=== PATIENT | female | born 1995 | race Two or more races ===

== ENCOUNTER 2018-08-24 06:04 | Inpatient (IN) | payer OTHER ==
[~2018-08-24] VITALS: Ht 154.9 cm; Wt 82.3 kg
[2018-08-24 06:43] LABS: BILIRUBIN,URINE NEGATIVE (NEG); CLARITY,URINE CLEAR; COLOR,URINE YELLOW; NITRITE,URINE NEGATIVE (NEG); PROTEIN,URINE NEGATIVE (NEG-TRACE)
[2018-08-24 06:48] LABS: AMPHETAMINE/METHAMPHETAMINE NEG (NEG); BARBITURATES NEG (NEG); BENZODIAZEPINES NEG (NEG); CANNABINOIDS NEG (NEG); COCAINE NEG (NEG); METHADONE NEG (NEG); OPIATES NEG (NEG); PHENCYCLIDINE NEG (NEG)
[2018-08-24 06:54] LABS: SQUAMOUS EPITHELIAL CELL,UR MOD /LPF
[2018-08-24 06:55] LABS: BACTERIA,URINE 0 /HPF (0-FEW)
[2018-08-24 07:31] LABS: AMNIO PT POSITIVE
[2018-08-24] MEDS ORDERED: CITRIC ACID/SODIUM CITRATE 30 ML SOLUTION. PO PRN (07:45)
[2018-08-24] MEDS ORDERED: ONDANSETRON PF 4 MG/2 ML VIAL. IV PRN (07:45)
[2018-08-24] MEDS ORDERED: IV RINGERS,LACTATED 1000ML 1,000 ML IV PRN (07:45)
[2018-08-24] MEDS ORDERED: ACETAMINOPHEN 325 MG TABLET. PO PRN ×2 (07:45→12:15)
[2018-08-24] MEDS ORDERED: OXYTOCIN 30 UNIT/500 ML PREMIX 500 ML IV PRN ×3 (07:45→12:15)
[2018-08-24] MEDS ORDERED: 0.9 % SODIUM CHLORIDE 10 ML DISP.SYRIN. IV PRN ×2 (07:45→12:15)
[2018-08-24] MEDS ORDERED: IBUPROFEN 400 MG TABLET. PO PRN ×2 (07:45→12:15)
[2018-08-24] MEDS ORDERED: fentaNYL PF VIAL 100 MCG/2 ML VIAL IV PRN ×2 (07:45)
[2018-08-24] MEDS ORDERED: LIDOCAINE 1% PF 30 ML VIAL. INJ PRN (07:45)
[2018-08-24] MEDS: IV RINGERS,LACTATED 1000ML 1,000 ML IV SCH ×2 (08:18→10:24)
[2018-08-24 08:32] LABS: BASO % 0 % (0-3); EOS % 0 % (0-3); HEMATOCRIT 38.4 % (36.0-47.0); HEMOGLOBIN 12.6 g/dL (12.0-15.5); LYMPH # 2.1 x10^3/uL (1.0-4.8); LYMPH % 22 % (24-48); MEAN CORPUSCULAR HEMOGLOBIN 30 pg (25-35); MEAN CORPUSCULAR HGB CONC 33 g/dL (31-37); MEAN CORPUSCULAR VOLUME 91 fL (79-100); MONO # 0.6 x10^3/uL (0.0-1.1); MONO % 6 % (0-9); NEUT # 6.7 x10^3uL (1.8-7.7); NEUT % 71 % (31-73); PLATELET COUNT 169 x10^3/uL (140-400); RED BLOOD COUNT 4.25 x10^6/uL (3.50-5.40); RED CELL DISTRIBUTION WIDTH 14.4 % (11.5-14.5); WHITE BLOOD COUNT 9.5 x10^3/uL (4.0-11.0)
[2018-08-24 08:49] LABS: ALBUMIN 2.7 g/dL (3.4-5.0); ALBUMIN/GLOBULIN RATIO 0.8 (1.0-1.7); CALCIUM 8.9 mg/dL (8.5-10.1); CREATININE 0.3 mg/dL (0.6-1.0); GFR 278.2; POTASSIUM 4.1 mmol/L (3.5-5.1); TOTAL BILIRUBIN 0.6 mg/dL (0.2-1.0); TOTAL PROTEIN 6.2 g/dL (6.4-8.2)
[2018-08-24 09:15] VITALS: BP 108/58
--- NOTE | 2018-08-24 12:06 | PDOC1 ---
OB - History Hx of Present Care: Good Care Ultrasounds: Normal mid trimester US Obstetrical Complications: None Medical Complications: None Past Family/Social History * Past Medical, Surgical, Family and Obstetric Histories reviewed from chart. Rubella: Immune RPR/VDRL: Negative GBS Status: Negative HBsAG: Negative OB - Chief Complaint & HPI Date of Admission: Date of Admission: Aug 24, 2018 at 06:04 Chief Complaint/History : 3 Para: 2 EGA: 38 Reason for admission: active labor Admission Nurse Assessment Rev: Yes OB - Admission Exam Physical Exam Vitals: VS - Last 72 Hours, by Label Date Time Temp Pulse Resp B/P (MAP) Pulse Ox O2 Delivery O2 Flow Rate FiO2 08/24/18 09:15 98.6 97 16 108/58 (75) Room Air 98.6 HEENT: Normal Heart: Regular Rate Lungs: Clear Abdomen: Gravid, Non tender, Soft Extremities: Edema Reflexes: Normal Cervical Dilatation: 3cm Effacement: 75% Station: -2 Membranes: Ruptured Amniotic Fluid: Clear Accelerations: Accelerations Present Decelerations: No decelerations Contractions on Admission: 6-10 Minutes Apart Intensity: Mild Text A: 38 wks IUP SROM Active labor P: Admit for labor management. Pitocin augmentation. GINGER BANKS Jr, MD Aug 24, 2018 12:06
--- NOTE | 2018-08-24 12:08 | PDOC ---
VAGINAL DELIVERY DATE DATE: 08/24/18 TIME: 12:07 : 3 Para: 3 EGA: 38 VAGINAL DELIVERY: VTX VACCUM ASSISTED: No PLACENTA: Spontaneous 8/9 SEX: Female WEIGHT Weight [ ] Nuchal Cord: No Amniotic Fluid: Clear PAIN: Natural EPISIOTOMY: No EXTENSION: Yes (1st degree midline laceration; hemostatic) REPAIRED WITH none EBL 300 ml COMPLICATIONS suspect 20% abruption on visual exam of placenta CONDITION pt. stable Signs of Intrauterine Infectio: None Shoulder Dystocia: No GNIGER BANKS Jr, MD Aug 24, 2018 12:08
[2018-08-24] MEDS ORDERED: MAG HYDROX/ALUMINUM HYD/SIMETH 30 ML ORAL.SUSP PO PRN (12:15)
[2018-08-24] MEDS ORDERED: oxyCODONE/APAP 5/325 1 TAB TABLET PO PRN (12:15)
[2018-08-24] MEDS ORDERED: ZOLPIDEM 5 MG TABLET. PO PRN (12:15)
[2018-08-24] MEDS ORDERED: HYDROCORTISONE 1% TOPICAL OINTMENT 30GM TUBE. TP PRN (12:15)
[2018-08-24] MEDS ORDERED: MMR per PROTOCOL. MC PRN (12:15)
[2018-08-24] MEDS ORDERED: MAGNESIUM HYDROXIDE 2,400 MG/30 ML ORAL.SUSP. PO PRN (12:15)
[2018-08-24] MEDS ORDERED: PHENYLEPH/MINERAL OIL/PETROLAT RECTAL OINTMENT 28GM TUBE. RC PRN (12:15)
[2018-08-24] MEDS ORDERED: BENZOCAINE 20% TOPICAL AEROSOL SPRAY 57GM CAN. TP PRN (12:15)
[2018-08-24] MEDS ORDERED: DOCUSATE SODIUM 100 MG CAPSULE. PO PRN (12:15)
[2018-08-24] MEDS ORDERED: diphenhydrAMINE HCL 25 MG CAPSULE PO PRN (12:15)
[2018-08-24] MEDS ORDERED: SIMETHICONE 80 MG TAB.CHEW PO PRN (12:15)
[2018-08-24 16:20] VITALS: BP 101/52
[2018-08-24 18:12] VITALS: BP 99/51
[2018-08-24 21:30] VITALS: BP 122/75
[2018-08-25 02:30] VITALS: BP 118/80
[2018-08-25 06:42] VITALS: BP 121/80
[2018-08-25 07:39] LABS: BASO # 0.1 x10^3/uL (0.0-0.2); BASO % 1 % (0-3); EOS # 0.1 x10^3/uL (0.0-0.7); EOS % 1 % (0-3); HEMATOCRIT 35.1 % (36.0-47.0); HEMOGLOBIN 11.6 g/dL (12.0-15.5); LYMPH # 2.5 x10^3/uL (1.0-4.8); LYMPH % 24 % (24-48); MEAN CORPUSCULAR HEMOGLOBIN 30 pg (25-35); MEAN CORPUSCULAR HGB CONC 33 g/dL (31-37); MEAN CORPUSCULAR VOLUME 91 fL (79-100); MONO # 0.6 x10^3/uL (0.0-1.1); MONO % 6 % (0-9); NEUT # 7.1 x10^3uL (1.8-7.7); NEUT % 69 % (31-73); PLATELET COUNT 147 x10^3/uL (140-400); RED BLOOD COUNT 3.84 x10^6/uL (3.50-5.40); RED CELL DISTRIBUTION WIDTH 14.4 % (11.5-14.5); WHITE BLOOD COUNT 10.3 x10^3/uL (4.0-11.0)
[2018-08-25] MEDS ORDERED: FERROUS SULFATE 325 MG TABLET. PO SCH (08:00)
--- NOTE | 2018-08-25 10:18 | PDOC ---
OB Progress Note Date of Service 08/25/18 Time of Evaluation 1015 Notes PT. feeling well. Pain controlled. Breast feeding without difficulty. Lab Laboratory Tests Test 08/24/18 06:30 08/24/18 07:10 08/24/18 08:09 08/25/18 07:02 Urine Collection Type Unknown Urine Color Yellow Urine Clarity Clear Urine pH 7.0 Urine Specific [place] 1.010 Urine Protein Negative mg/dL (NEG-TRACE) Urine Glucose (UA) Negative mg/dL (NEG) Urine Ketones (Stick) Negative mg/dL (NEG) Urine Blood Negative (NEG) Urine Nitrite Negative (NEG) Urine Bilirubin Negative (NEG) Urine Urobilinogen Dipstick 1.0 mg/dL (0.2 mg/dL) Urine Leukocyte Esterase Trace (NEG) Urine RBC 1-2 /HPF (0-2) Urine WBC 5-10 /HPF (0-4) Urine Squamous Epithelial Cells Mod /LPF Urine Bacteria 0 /HPF (0-FEW) Urine Mucus Slight /LPF Urine Opiates Screen Neg (NEG) Urine Methadone Screen Neg (NEG) Urine Barbiturates Neg (NEG) Urine Phencyclidine Screen Neg (NEG) Urine Amphetamine/Methamphetamine Neg (NEG) Urine Benzodiazepines Screen Neg (NEG) Urine Cocaine Screen Neg (NEG) Urine Cannabinoids Screen Neg (NEG) Urine Ethyl Alcohol Neg (NEG) Amniotic Fluid Swab Test Positive White Blood Count 9.5 x10^3/uL (4.0-11.0) 10.3 x10^3/uL (4.0-11.0) Red Blood Count 4.25 x10^6/uL (3.50-5.40) 3.84 x10^6/uL (3.50-5.40) Hemoglobin 12.6 g/dL (12.0-15.5) 11.6 g/dL (12.0-15.5) Hematocrit 38.4 % (36.0-47.0) 35.1 % (36.0-47.0) Mean Corpuscular Volume 91 fL (79-100) 91 fL (79-100) Mean Corpuscular Hemoglobin 30 pg (25-35) 30 pg (25-35) Mean Corpuscular Hemoglobin Concent 33 g/dL (31-37) 33 g/dL (31-37) Red Cell Distribution Width 14.4 % (11.5-14.5) 14.4 % (11.5-14.5) Platelet Count 169 x10^3/uL (140-400) 147 x10^3/uL (140-400) Neutrophils (%) (Auto) 71 % (31-73) 69 % (31-73) Lymphocytes (%) (Auto) 22 % (24-48) 24 % (24-48) Monocytes (%) (Auto) 6 % (0-9) 6 % (0-9) Eosinophils (%) (Auto) 0 % (0-3) 1 % (0-3) Basophils (%) (Auto) 0 % (0-3) 1 % (0-3) Neutrophils # (Auto) 6.7 x10^3uL (1.8-7.7) 7.1 x10^3uL (1.8-7.7) Lymphocytes # (Auto) 2.1 x10^3/uL (1.0-4.8) 2.5 x10^3/uL (1.0-4.8) Monocytes # (Auto) 0.6 x10^3/uL (0.0-1.1) 0.6 x10^3/uL (0.0-1.1) Eosinophils # (Auto) 0.0 x10^3/uL (0.0-0.7) 0.1 x10^3/uL (0.0-0.7) Basophils # (Auto) 0.0 x10^3/uL (0.0-0.2) 0.1 x10^3/uL (0.0-0.2) Sodium Level 138 mmol/L (136-145) Potassium Level 4.1 mmol/L (3.5-5.1) Chloride Level 103 mmol/L (98-107) Carbon Dioxide Level 23 mmol/L (21-32) Anion Gap 12 (6-14) Blood Urea Nitrogen 6 mg/dL (7-20) Creatinine 0.3 mg/dL (0.6-1.0) Estimated GFR (Cockcroft-Gault) 278.2 BUN/Creatinine Ratio 20 (6-20) Glucose Level 80 mg/dL (70-99) Calcium Level 8.9 mg/dL (8.5-10.1) Total Bilirubin 0.6 mg/dL (0.2-1.0) Aspartate Amino Transf (AST/SGOT) 28 U/L (15-37) Alanine Aminotransferase (ALT/SGPT) 18 U/L (14-59) Alkaline Phosphatase 127 U/L (46-116) Total Protein 6.2 g/dL (6.4-8.2) Albumin 2.7 g/dL (3.4-5.0) Albumin/Globulin Ratio 0.8 (1.0-1.7) Treponema pallidum Antibody Nonreactive (Nonreactive) Laboratory Tests Test 08/25/18 07:02 White Blood Count 10.3 x10^3/uL (4.0-11.0) Red Blood Count 3.84 x10^6/uL (3.50-5.40) Hemoglobin 11.6 g/dL (12.0-15.5) Hematocrit 35.1 % (36.0-47.0) Mean Corpuscular Volume 91 fL (79-100) Mean Corpuscular Hemoglobin 30 pg (25-35) Mean Corpuscular Hemoglobin Concent 33 g/dL (31-37) Red Cell Distribution Width 14.4 % (11.5-14.5) Platelet Count 147 x10^3/uL (140-400) Neutrophils (%) (Auto) 69 % (31-73) Lymphocytes (%) (Auto) 24 % (24-48) Monocytes (%) (Auto) 6 % (0-9) Eosinophils (%) (Auto) 1 % (0-3) Basophils (%) (Auto) 1 % (0-3) Neutrophils # (Auto) 7.1 x10^3uL (1.8-7.7) Lymphocytes # (Auto) 2.5 x10^3/uL (1.0-4.8) Monocytes # (Auto) 0.6 x10^3/uL (0.0-1.1) Eosinophils # (Auto) 0.1 x10^3/uL (0.0-0.7) Basophils # (Auto) 0.1 x10^3/uL (0.0-0.2) Medications Current Medications Ringer's Solution 1,000 ml @ 125 mls/hr Q8H IV Last administered on 08/24/18at 10:24; Start 08/24/18 at 07:00; Stop 08/25/18 at 07:19; Status DC Sodium Chloride (Normal Saline Flush) 3 ml QSHIFT PRN IV AFTER MEDS AND BLOOD DRAWS; Start 08/24/18 at 07:45; Stop 08/25/18 at 07:19; Status DC Ringer's Solution 1,000 ml @ 125 mls/hr Q8H PRN IV PER PROTOCOL; Start 08/24/18 at 07:45; Stop 08/25/18 at 07:19; Status DC Fentanyl Citrate (Fentanyl 2ml Vial) 50 mcg PRN Q30MIN PRN IV Mild to moderate pain; Start 08/24/18 at 07:45; Stop 08/25/18 at 07:19; Status DC Fentanyl Citrate (Fentanyl 2ml Vial) 100 mcg PRN Q30MIN PRN IV Severe pain; Start 08/24/18 at 07:45; Stop 08/25/18 at 07:19; Status DC Acetaminophen (Tylenol) 650 mg PRN Q6HRS PRN PO MILD PAIN / TEMP; Start at 07:45 Ondansetron HCl (Zofran) 4 mg PRN Q4HRS PRN IV NAUSEA/VOMITING; Start 08/24/18 at 07:45; Stop 08/25/18 at 07:19; Status DC Citric Acid/ Sodium Citrate (Bicitra) 30 ml 1X PRN PRN PO DYSPEPSIA; Start 08/24 at 07:45; Stop 08/25/18 at 07:19; Status DC Lidocaine HCl (Xylocaine 1% Pf 30ml Vial) 30 ml 1X PRN PRN INJ SEE COMMENTS; Start 08/24/18 at 07:45; Stop 08/25/18 at 07:19; Status DC Oxytocin/Sodium Chloride 500 ml @ 0 mls/hr CONT PRN IV SEE I/O RECORD Last administered on 08/24/18at 10:24; Start 08/24/18 at 07:45; Stop 08/25/18 at 07:19; Status DC Oxytocin/Sodium Chloride 500 ml @ 0 mls/hr CONT PRN PRN IV Post delivery bleeding; Start 08/24/18 at 07:45; Stop 08/25/18 at 07:19; Status DC Ibuprofen (Motrin) 800 mg PRN Q6HRS PRN PO PAIN Last administered on 08/24/18at 18:21; Start 08/24/18 at 07:45 Sodium Chloride (Normal Saline Flush) 10 ml QSHIFT PRN IV AFTER MEDS AND BLOOD DRAWS; Start 08/24/18 at 12:15; Stop 08/25/18 at 07:19; Status DC Oxytocin/Sodium Chloride 500 ml @ 62.5 mls/hr CONT PRN IV SEE I/O RECORD; Start 08/24/18 at 12:15; Stop 08/24/18 at 20:14; Status DC Acetaminophen (Tylenol) 650 mg PRN Q6HRS PRN PO MILD PAIN / TEMP; Start at 12:15; Stop 08/24/18 at 12:16; Status DC Ibuprofen (Motrin) 800 mg PRN Q8HRS PRN PO INFLAMMATION/PAIN PREVENTION; Start 08/24/18 at 12:15; Stop 08/24/18 at 12:16; Status DC Docusate Sodium (Colace) 100 mg PRN BID PRN PO CONSTIPATION 1ST CHOICE Last administered on 08/24/18at 18:21; Start 08/24/18 at 12:15 Magnesium Hydroxide (Milk Of Magnesia) 2,400 mg PRN DAILY PRN PO CONSTIPATION 2ND CHOICE; Start 08/24/18 at 12:15 Al Hydroxide/Mg Hydroxide (Mylanta Plus Xs) 30 ml PRN Q4HRS PRN PO HEARTBURN / GAS; Start 08/24/18 at 12:15 Simethicone (Gas-X) 80 mg PRN AFTMEALHC PRN PO GAS / BLOATING; Start 08/24/18 at 12:15 Diphenhydramine HCl (Benadryl) 25 mg PRN Q6HRS PRN PO ITCHING; Start 08/24/18 at 12:15 Benzocaine (Americaine) 1 spray PRN QID PRN TP TOPICAL PAIN; Start 08/24/18 at 12:15 Phenyleph/Shark Oil/Min Oil/Petrol (Preparation H) 1 charisse PRN QID PRN RC RECTAL PAIN; Start 08/24/18 at 12:15 Hydrocortisone (Cortaid) 1 charisse PRN QID PRN TP PERINEAL PAIN; Start 08/24/18 at 12:15 Ferrous Sulfate (Feosol) 325 mg BIDWMEALS PO ; Start 08/25/18 at 08:00 Zolpidem Tartrate (Ambien) 5 mg PRN QHS PRN PO INSOMNIA, MAY REPEAT X1; Start 08/24/18 at 12:15 Info (Do NOT chart on this placeholder) 1 ea 1X PRN PRN MC SEE COMMENTS; Start 08/24/18 at 12:15; Stop 08/25/18 at 07:19; Status DC Info (Do NOT chart on this placeholder) 1 ea 1X PRN PRN MC SEE COMMENTS; Start 08/24/18 at 12:15; Stop 08/25/18 at 07:19; Status DC Oxycodone/ Acetaminophen (Percocet 5/325) 2 tab PRN Q4HRS PRN PO MODERATE PAIN , SEVERE PAIN; Start 08/24/18 at 12:15 Exam Abd: soft, non tender, fundus firm Assessment PPD#1 s/p Plan of Care: Continue current Tx, Mgmt GINGER BANKS Jr, MD Aug 25, 2018 10:18
[2018-08-25 12:47] VITALS: BP 110/73
[2018-08-25 17:31] VITALS: BP 130/91
[2018-08-25 23:08] VITALS: BP 134/93
--- NOTE | 2018-08-26 08:11 | PDOC3 ---
OB DISCHARGE SUMMARY DATE OF ADMISSION: 08/24/18 DATE OF DISCHARGE: 08/26/18 REASON FOR ADMISSION: Onset of labor INTRAPARTUM PROCEDURES: Spontanous Vag Deliv DISCHARGE DIAGNOSIS: Term Delivered DISCHARGE INFORMATION: Activity (ad samaria), Diet (regular), Instructions (pelvic rest x 6 wks) HOSPITAL COURSE Term gestation delivered vaginally without any complications. GINGER BANKS Jr, MD Aug 26, 2018 08:11
--- NOTE | 2018-08-26 08:11 | DISCH ---
DISCHARGE INSTRUCTIONS Condition on Discharge Condition on Discharge: Stable Activity After Discharge Activity Instructions for Disc: Activity as tolerated Lifting Instructions after Dis: No heavy lifting Driving Instructions after Dis: Do not drive today Diet after Discharge Diet after Discharge: Regular Contacting the DRJimi after DC Call your doctor for: Concerns you may have Follow-Up Follow up with: [facility] in 6 wks GINGER BANKS Jr, MD Aug 26, 2018 08:11
[2018-08-26] MEDS ORDERED: IBUP-1027 PO (08:13)
--- NOTE | 2018-08-26 10:55 | NUR ---
Discharge Discharge instructions given to patient at this time, no questions or concerns noted at this time. To follow up in 6 weeks with [facility]. Patient requesting to shower. will continue to monitor until discharged from hospital.
--- NOTE | 2018-08-26 17:08 | PATHOLOGY ---
[facility] Accession Number: [id number] . 01 Material submitted: . PLACENTA . 01 Clinical history: . ; EDC 09/06/18; Apgars 9, 9; gestational age 38.1 weeks; abruptio placenta; 20% partial abruption . 02 Diagnosis: 599 gram early term placenta of an estimated 38 weeks gestation with attached membranes and umbilical cord: - Focal disruption of maternal surface (clinical history of partial abruption). - Small intervillous thrombus with focal villous entrapment and ischemic degeneration. - Few small foci of avascular villi. (JPM:[facility] 08/26/2018) QTP/08/26/2018 . 02 Electronically signed: . Roc Wells MD, Pathologist NPI- [id number] . 01 Gross description: . The specimen is received in formalin, labeled "Deidre Garcia, placenta". Received is a deleon placenta with attached membranes and umbilical cord with a trimmed placental weight of 599 g and measuring 15.4 x 14.9 x 4.2 cm in greatest dimensions. The membranes are pink-kong and translucent in appearance, and the site of membrane rupture is 8.8 cm from the closest placental margin. The surface is intact displaying a normal arborizing vasculature pattern, fibrin deposition, as well as a completely detached amnion which is wrapped around the cord insertion site. Adjacent to the cord insertion site, there is a fluid-filled subamnionic cyst measuring 1.5 cm. The trivascular umbilical cord measures 52.8 cm in length by up to 1.6 cm in diameter and inserts eccentrically, 1.8 cm from the closest placental margin. The umbilical cord is pale kong to pettit-kong in appearance with moderate helical twisting. The maternal surface is disrupted over approximately 20% of the surface area, and displays a slight amount of adherent blood coagulum. Sectioning reveals red-brown cut surfaces displaying a single possible infarct measuring 0.5 cm. The specimen is submitted representatively as follows: . A1 umbilical cord and surface vessels, to include subamnionic cystic structure adjacent to cord insertion site A2 umbilical cord and membrane roll A3-A4 full-thickness possible cross-section, to include possible infarct A5 telephone claims representative section through area of disruption. (CAA; 08/25/2018) QAC/QAC . 02 Pathologist provided ICD-10: O43.893, Z37.0, Z3A.38 . 02 CPT . 079113 Specimen Comment: A courtesy copy of this report has been sent to Specimen Comment: [phone]. Specimen Comment: Report sent to Performed at: [facility] [address], [place] [id number] MD Zach Chung MD Phone: [phone] Performed at: 02 [facility] [address], [place] [id number] MD Roc Wells MD Phone: [phone]
== END 2018-08-26 12:09 | disposition home or self-care (01) | DRG 806 ==
LOC: OBSVTOIN 06:04 → 3 SO LND 06:04 → 3 NORTH 15:38
PROVIDERS: ADMIT Obstetrics & Gynecology; ATTEND Obstetrics & Gynecology
PROC: 10E0XZZ Delivery of Products of Conception, External Approach (ICD-10-PCS; principal; 2018-08-24)
PROC: 0HQ9XZZ Repair Perineum Skin, External Approach (ICD-10-PCS; 2018-08-24)
DX: O70.0 First degree perineal laceration during delivery (principal); D62 Acute posthemorrhagic anemia; Z37.0 Single live birth; Z3A.38 38 weeks gestation of pregnancy; O99.02 Anemia complicating childbirth
CPT/HCPCS: 36415; 80053; 80307; 81001; 84112; 85025; 86592; 86850; 86900; 86901; 87086; 88307; J2590; J7120

== ENCOUNTER 2020-10-20 21:44 | Inpatient (IN) | payer OTHER ==
[~2020-10-20] VITALS: Ht 154.9 cm; Wt 78.2 kg
[~2020-10-20 21:44] MED LIST: IBUP-1027 PO
[2020-10-20] MEDS ORDERED: OXYTOCIN 30 UNIT/500 ML PREMIX 500 ML IV ONE (22:08)
[2020-10-20] MEDS ORDERED: BUTORPHANOL 2 MG/ML VIAL. IVP PRN ×2 (22:15)
[2020-10-20] MEDS ORDERED: OXYTOCIN 30 UNIT/500 ML PREMIX 500 ML IV PRN ×3 (22:15→22:30)
[2020-10-20] MEDS ORDERED: 0.9 % SODIUM CHLORIDE 10 ML DISP.SYRIN. IV PRN ×2 (22:15→22:30)
[2020-10-20] MEDS ORDERED: fentaNYL PF VIAL 100 MCG/2 ML VIAL IVP PRN (22:15)
[2020-10-20] MEDS ORDERED: ACETAMINOPHEN 325 MG TABLET. PO PRN ×2 (22:15→22:30)
[2020-10-20] MEDS ORDERED: ONDANSETRON PF 4 MG/2 ML VIAL. IVP PRN (22:15)
[2020-10-20] MEDS ORDERED: TERBUTALINE 1 MG/ML VIAL. SQ PRN (22:15)
[2020-10-20] MEDS ORDERED: LIDOCAINE 1% PF 30 ML VIAL. INJ PRN (22:15)
--- NOTE | 2020-10-20 22:24 | PDOC ---
VAGINAL DELIVERY DATE DATE: 10/20/20 TIME: 22:24 TIME Patient delivered a viable male over intact perineum at 2205. Wt 7 lb 1 oz. Apgars 8/9. Placenta delivered spontaneously, intact with 3VC. No lacerations noted. Good hemostasis noted. 20 U of Pit given with IVF. EBL 100cc. WEIGHT Weight [ ] IVETTE BERKOWITZ MD October 20, 2020 22:24
--- NOTE | 2020-10-20 22:24 | PDOC1 ---
PRODUCT LINE MANAGER H&P Date of Admission: Date of Admission: October 20, 2020 at 21:44 History of Present Illness: EDC: 11/11/20 LMP: 02/05/20 25y @ 36.6 by L=16 presents to L&D with LOF and ctxs. The pt states that she experienced LOF at 1600, but did not present to the hospital until she began to feeling ctxs. On presentation the pt was found to be 8 cm dilated. I returned the call from labor at 2104 and was informed of her cervical dilation. Shortly after the phone call the pt delivered at 210. PMH: Denies PSH: Denies Meds: PNV, Fe All: NKDA OBHx: TSVD x 3 SH: no tob, no EtOH FH: noncontributory Allergies: Coded Allergies: No Known Drug Allergies (Unverified , 08/24/18) Physical Exam: PE: GENERAL: No apparent distress. Alert and oriented. HEENT: Head normocephalic, atraumatic. NECK: Supple LUNGS: Clear to auscultation. HEART: RRR, S1, S2 present, pulses intact ABDOMEN: Soft, positive bowel sounds. EXTREMITIES: No cyanosis or edema. NEUROLOGIC: Normal speech, normal tone PSYCHIATRIC: Normal affect, normal mood. SKIN: No ulceration. FHT: 150's +acels/no decels/mLTV [place]: 1-4 min SVE: 8/C/+1 Assessment & Plan: A/P 25y @ 36.6 by L=16 1.) SROM/Active labor delivered within 15 minutes of reaching L&D 2.) Anemia - on Fe BID 3.) Elevated GTT - 0 of 4 values of 3hr GTT elevated 4.) Flu vaccine given 05/20/20 5.) TDAP given 08/15/20 6.) Fetus cat I FHT 7.) GBS neg IVETTE BERKOWITZ MD October 20, 2020 22:23
[2020-10-20] MEDS ORDERED: MAGNESIUM HYDROXIDE 2,400 MG/30 ML ORAL.SUSP. PO PRN (22:30)
[2020-10-20] MEDS ORDERED: SIMETHICONE 80 MG TAB.CHEW PO PRN (22:30)
[2020-10-20] MEDS ORDERED: DOCUSATE SODIUM 100 MG CAPSULE. PO PRN (22:30)
[2020-10-20] MEDS ORDERED: diphenhydrAMINE HCL 25 MG CAPSULE PO PRN (22:30)
[2020-10-20] MEDS ORDERED: BENZOCAINE 20% TOPICAL AEROSOL SPRAY 57GM CAN. TP PRN (22:30)
[2020-10-20] MEDS ORDERED: ZOLPIDEM 5 MG TABLET. PO PRN (22:30)
[2020-10-20] MEDS ORDERED: IBUPROFEN 400 MG TABLET. PO PRN (22:30)
[2020-10-20] MEDS ORDERED: PHENYLEPH/MINERAL OIL/PETROLAT RECTAL OINTMENT TUBE. RC PRN (22:30)
[2020-10-20] MEDS ORDERED: MAG HYDROX/ALUMINUM HYD/SIMETH 30 ML ORAL.SUSP PO PRN (22:30)
[2020-10-20] MEDS ORDERED: TDaP (Adacel) per PROTOCOL. MC PRN (22:30)
[2020-10-20] MEDS ORDERED: HYDROCORTISONE 1% TOPICAL OINTMENT 30GM TUBE. TP PRN (22:30)
[2020-10-20] MEDS ORDERED: oxyCODONE/APAP 5/325 1 TAB TABLET PO PRN (22:30)
[2020-10-20] MEDS ORDERED: MMR per PROTOCOL. MC PRN (22:30)
[2020-10-20 22:35] LABS: BASO # 0.1 x10^3/uL (0.0-0.2); BASO % 1 % (0-3); EOS # 0.1 x10^3/uL (0.0-0.7); EOS % 1 % (0-3); HEMATOCRIT 37.6 % (36.0-47.0); HEMOGLOBIN 12.3 g/dL (12.0-15.5); LYMPH # 2.3 x10^3/uL (1.0-4.8); LYMPH % 28 % (24-48); MEAN CORPUSCULAR HEMOGLOBIN 29 pg (25-35); MEAN CORPUSCULAR HGB CONC 33 g/dL (31-37); MEAN CORPUSCULAR VOLUME 88 fL (79-100); MONO # 0.5 x10^3/uL (0.0-1.1); MONO % 6 % (0-9); NEUT # 5.3 x10^3/uL (1.8-7.7); NEUT % 64 % (31-73); PLATELET COUNT 176 x10^3/uL (140-400); RED BLOOD COUNT 4.26 x10^6/uL (3.50-5.40); RED CELL DISTRIBUTION WIDTH 17.2 % (11.5-14.5); WHITE BLOOD COUNT 8.2 x10^3/uL (4.0-11.0)
[2020-10-20 22:37] LABS: BILIRUBIN,URINE NEGATIVE (NEG); CLARITY,URINE CLEAR; COLOR,URINE YELLOW; NITRITE,URINE NEGATIVE (NEG); PH,URINE 6.5 (<5.0-8.0); PROTEIN,URINE NEGATIVE (NEG-TRACE)
[2020-10-20 22:43] LABS: BARBITURATES NEG (NEG); BENZODIAZEPINES NEG (NEG); CANNABINOIDS NEG (NEG); COCAINE NEG (NEG); METHADONE NEG (NEG); OPIATES NEG (NEG); PHENCYCLIDINE NEG (NEG)
[2020-10-20 22:45] LABS: AMPHETAMINE/METHAMPHETAMINE NEG (NEG)
[2020-10-20 22:46] LABS: BACTERIA,URINE 0 /HPF (0-FEW); RBC,URINE 0 /HPF (0-2); WBC,URINE OCC /HPF (0-4)
[2020-10-20] MEDS: IBUPROFEN 400 MG TABLET. PO PRN (22:53)
[2020-10-20] MEDS: IV RINGERS,LACTATED 1000ML 1,000 ML IV SCH ×2 (22:55→23:45)
[2020-10-21 03:04] VITALS: BP 118/60
[2020-10-21 03:10] LABS: HEMATOCRIT 35.4 % (36.0-47.0); HEMOGLOBIN 11.5 g/dL (12.0-15.5); RED BLOOD COUNT 3.96 x10^6/uL (3.50-5.40); WHITE BLOOD COUNT 12.4 x10^3/uL (4.0-11.0)
[2020-10-21] MEDS: IBUPROFEN 400 MG TABLET. PO PRN ×2 (07:20→22:21)
[2020-10-21] MEDS: PRENATAL MULTIVITAMIN TABLET. PO SCH (07:20)
[2020-10-21] MEDS: FERROUS SULFATE 325 MG TABLET. PO SCH ×2 (08:00→17:00)
[2020-10-21 08:17] VITALS: BP 139/88
[2020-10-21 13:18] VITALS: BP 127/78
[2020-10-21] MEDS: IV RINGERS,LACTATED 1000ML 1,000 ML IV SCH ×2 (14:15→22:15)
[2020-10-21 18:19] VITALS: BP 124/81
[2020-10-21 22:00] VITALS: BP 134/78
[2020-10-22] MEDS: IV RINGERS,LACTATED 1000ML 1,000 ML IV SCH ×2 (06:15→14:15)
[2020-10-22] MEDS: FERROUS SULFATE 325 MG TABLET. PO SCH (08:00)
[2020-10-22 08:30] VITALS: BP 118/68
[2020-10-22] MEDS: IBUPROFEN 400 MG TABLET. PO PRN (08:37)
[2020-10-22] MEDS: PRENATAL MULTIVITAMIN TABLET. PO SCH (08:37)
[2020-10-22] MEDS ORDERED: DOCU-109 PO (08:53)
[2020-10-22] MEDS ORDERED: IBUP-1060 PO (08:53)
--- NOTE | 2020-10-22 09:23 | PDOC ---
ROCKET ENGINE COMPONENT MECHANIC PROGRESS NOTE Date of Service: DATE: 10/22/20 TIME: 09:21 Subjective: Pt with good pain control. Paolo PO. Voiding. Minimal lochia Objective: Vital Signs: Vital Signs Date Time Temp Pulse Resp B/P (MAP) Pulse Ox O2 Delivery O2 Flow Rate FiO2 10/21/20 07:56 Room Air 10/21/20 08:17 98.0 88 16 139/88 (105) 98.0 10/21/20 22:00 98 Vital Signs Date Time Temp Pulse Resp B/P (MAP) Pulse Ox O2 Delivery O2 Flow Rate FiO2 10/21/20 22:00 97.8 81 18 134/78 (96) 98 Room Air 97.8 Physical Exam: GENERAL: No apparent distress. Alert and oriented. HEENT: Head normocephalic, atraumatic. NECK: Supple LUNGS: Clear to auscultation. HEART: RRR, S1, S2 present, pulses intact ABDOMEN: Soft, positive bowel sounds. EXTREMITIES: No cyanosis or edema. NEUROLOGIC: Normal speech, normal tone PSYCHIATRIC: Normal affect, normal mood. SKIN: No ulceration. FFNT below umb No C/C/E Assessment & Plan: A/P 25y PPD #2 s/p @ 36.6 1.) PP doing well 2.) Hgb 12.3 -> 11.5 3.) Flu vaccine given 05/20/20 4.) TDAP given 08/15/20 5.) D/c home IVETTE BERKOWITZ MD October 22, 2020 09:23
--- NOTE | 2020-10-22 09:48 | DS ---
DATE OF DISCHARGE: 10/22/2020 ADMISSION DIAGNOSES: 1. Intrauterine at 36 weeks and 6 days by a last menstrual period equal to a 16 week ultrasound. 2. Spontaneous rupture of membranes/active labor. 3. History of anemia. 4. Elevated GTT within normal 3-hour GTT. 5. Status post flu vaccine. 6. Status post Tdap. 7. GBS negative. DISCHARGE DIAGNOSES: 1. Intrauterine at 36 weeks and 6 days by a last menstrual period equal to a 16 week ultrasound. 2. Spontaneous rupture of membranes/active labor. 3. History of anemia. 4. Elevated GTT within normal 3-hour GTT. 5. Status post flu vaccine. 6. Status post Tdap. 7. GBS negative. PROCEDURE: Spontaneous vaginal delivery. BRIEF HOSPITAL COURSE: The patient is a 25-year-old 4, para 3-0-0-3, who presented to labor and delivery at 36 weeks and 6 days by LMP equal to a 16 week ultrasound with leakage of fluid and contractions. The patient reported that she had had leakage of fluid at 1600, but only presented to the hospital only 15 minutes prior, only presented to the hospital because she started to have contractions about 15 minutes prior. On presentation, the patient was found to be 8 cm and roughly 15 minutes after presentation delivered by vaginal delivery. See delivery note for full detail. By day #2, the patient was meeting all discharge criteria and subsequently discharged home. Of note, the patient's hemoglobin on admission was 12.3 and after discharge was 11.5. DISCHARGE INSTRUCTIONS: The patient was told not to lift anything greater than 20 pounds, have pelvic rest for 6 weeks. CALL IF: The patient was to call if she had fevers, chills, nausea, vomiting, abdominal pain, or any additional questions or concerns. FOLLOWUP APPOINTMENT: The patient was to follow up on 12/09 at 10:20 a.m. for a visit. DISCHARGE MEDICATIONS: The patient was given a prescription for Motrin 800 mg 30 pills and Colace 100 mg 30 pills. GLEN/NAYAN DR: Ericka TID: [id number]
[2020-10-22 15:00] VITALS: BP 135/78
== END 2020-10-22 15:00 | disposition home or self-care (01) | DRG 807 ==
LOC: OBSVTOIN 21:44 → 3 SO LND 21:44
PROVIDERS: ADMIT Obstetrics & Gynecology; ATTEND Obstetrics & Gynecology
PROC: 10E0XZZ Delivery of Products of Conception, External Approach (ICD-10-PCS; principal; 2020-10-20)
DX: O99.02 Anemia complicating childbirth (principal); Z37.0 Single live birth; Z3A.36 36 weeks gestation of pregnancy; D64.9 Anemia, unspecified; Z20.822 Contact with and (suspected) exposure to COVID-19
CPT/HCPCS: 36415; 80307; 81001; 85025; 85027; 86592; 86850; 86900; 86901; 87426; J2590; J7120; U0003; U0005; G0378

== ENCOUNTER 2021-09-06 10:58 | Inpatient (IN) | payer OTHER ==
[~2021-09-06] VITALS: Ht 154.9 cm; Wt 81.0 kg
[~2021-09-06 10:58] MED LIST changes: +DOCU-109 PO; +IBUP-1060 PO
[2021-09-06] MEDS ORDERED: IV RINGERS,LACTATED 1000ML 1,000 ML IV PRN (11:15)
[2021-09-06 11:40] VITALS: BP 144/94
[2021-09-06 11:58] LABS: BILIRUBIN,URINE NEGATIVE (NEG); CLARITY,URINE CLEAR; COLOR,URINE YELLOW; NITRITE,URINE NEGATIVE (NEG); PH,URINE 7.5 (<5.0-8.0); PROTEIN,URINE 30 mg/dL (NEG-TRACE); UROBILINOGEN,URINE 0.2 mg/dL (0.2 mg/dL)
[2021-09-06 12:00] LABS: BACTERIA,URINE FEW /HPF (0-FEW); RBC,URINE 0 /HPF (0-2)
[2021-09-06] MEDS ORDERED: IV RINGERS,LACTATED 1000ML 1,000 ML IV SCH (12:15)
[2021-09-06] MEDS ORDERED: TERBUTALINE 1 MG/ML VIAL. SQ PRN (12:15)
[2021-09-06] MEDS ORDERED: 0.9 % SODIUM CHLORIDE 10 ML DISP.SYRIN. IV PRN (12:15)
[2021-09-06] MEDS ORDERED: OXYTOCIN 30 UNIT/500 ML PREMIX 500 ML IV PRN ×2 (12:15)
[2021-09-06] MEDS ORDERED: LIDOCAINE 1% PF 30 ML VIAL. INJ PRN (12:15)
[2021-09-06 12:16] LABS: BASO % 0 % (0-3); EOS % 1 % (0-3); HEMATOCRIT 39.7 % (36.0-47.0); HEMOGLOBIN 12.8 g/dL (12.0-15.5); LYMPH % 23 % (24-48); MEAN CORPUSCULAR HEMOGLOBIN 29 pg (25-35); MEAN CORPUSCULAR HGB CONC 32 g/dL (31-37); MEAN CORPUSCULAR VOLUME 89 fL (79-100); MONO # 0.4 x10^3/uL (0.0-1.1); MONO % 5 % (0-9); NEUT % 71 % (31-73); PLATELET COUNT 216 x10^3/uL (140-400); RED BLOOD COUNT 4.45 x10^6/uL (3.50-5.40); RED CELL DISTRIBUTION WIDTH 16.1 % (11.5-14.5); WHITE BLOOD COUNT 8.5 x10^3/uL (4.0-11.0)
[2021-09-06] MEDS ORDERED: fentaNYL PF VIAL 100 MCG/2 ML VIAL ONE (12:24)
[2021-09-06] MEDS ORDERED: fentaNYL PF VIAL 100 MCG/2 ML VIAL IVP ONE (12:30)
--- NOTE | 2021-09-06 13:36 | PDOC1 ---
MAIL TECHNICIAN H&P Date of Admission: Date of Admission: Sep 06, 2021 at 10:58 History of Present Illness: [id number] presents to L&D in spontaneous active labor. UCs started at 1000, quickly increasing in frequency and intensity. SVE 7cm on arrival. Short interval , otherwise denies complications. NSVDx4. Pelvis proven to 7lb9oz. PMH unremarkable. BT: O+, ab neg RPR NR RI VZI Hep B/C Neg HIV Neg GCT 114 GBS Neg H&H 12.8/39.7 No Flu, No Covid TDaP 08/12 Past Medical History: PMH: Unremarkable Cardiovascular: No pertinent hx Pulmonary: No pertinent hx GI: No pertinent hx Heme/Onc: No pertinent hx Hepatobiliary: No pertinent hx Psych: No pertinent hx Rheumatologic: No pertinent hx Infectious disease: No pertinent hx ENT: No pertinent hx Renal/: No pertinent hx Endocrine: No pertinent hx Dermatology: No pertinent hx Social History: Smoke: No ALCOHOL: none Medications: Meds: Current Medications Medications (Trade) Dose Ordered Sig/Fady Route PRN Reason Start Time Stop Time Status Last Admin Dose Admin Ringer's Solution 1,000 ml @ 125 mls/hr Q8H PRN IV PER PROTOCOL 09/06/21 11:15 09/06/21 12:52 Oxytocin 500 ml @ 0 mls/hr CONT PRN PRN IV Post delivery bleeding 09/06/21 12:15 09/06/21 12:54 Fentanyl Citrate (Fentanyl 2ml Vial) 100 mcg 1X ONCE IVP 09/06/21 12:30 09/06/21 12:31 DC 09/06/21 12:55 Allergies: Coded Allergies: No Known Drug Allergies (Unverified , 08/24/18) Physical Exam: PE: GENERAL: No apparent distress. Alert and oriented. HEENT: Head normocephalic, atraumatic. NECK: Supple LUNGS: Clear to auscultation. HEART: RRR, S1, S2 present, pulses intact ABDOMEN: Soft, positive bowel sounds. EXTREMITIES: No cyanosis or edema. NEUROLOGIC: Normal speech, normal tone PSYCHIATRIC: Normal affect, normal mood. SKIN: No ulceration. Labs: Laboratory Tests Test 09/06/21 11:11 09/06/21 11:40 Urine Collection Type Unknown Urine Color Yellow Urine Clarity Clear Urine pH 7.5 (<5.0-8.0) Urine Specific [place] 1.015 (1.000-1.030) Urine Protein 30 mg/dL (NEG-TRACE) Urine Glucose (UA) Negative mg/dL (NEG) Urine Ketones (Stick) Trace mg/dL (NEG) Urine Blood Negative (NEG) Urine Nitrite Negative (NEG) Urine Bilirubin Negative (NEG) Urine Urobilinogen Dipstick 0.2 mg/dL (0.2 mg/dL) Urine Leukocyte Esterase Negative (NEG) Urine RBC 0 /HPF (0-2) Urine WBC 1-4 /HPF (0-4) Urine Squamous Epithelial Cells Many /LPF Urine Bacteria Few /HPF (0-FEW) White Blood Count 8.5 x10^3/uL (4.0-11.0) Red Blood Count 4.45 x10^6/uL (3.50-5.40) Hemoglobin 12.8 g/dL (12.0-15.5) Hematocrit 39.7 % (36.0-47.0) Mean Corpuscular Volume 89 fL (79-100) Mean Corpuscular Hemoglobin 29 pg (25-35) Mean Corpuscular Hemoglobin Concent 32 g/dL (31-37) Red Cell Distribution Width 16.1 % (11.5-14.5) H Platelet Count 216 x10^3/uL (140-400) Neutrophils (%) (Auto) 71 % (31-73) Lymphocytes (%) (Auto) 23 % (24-48) L Monocytes (%) (Auto) 5 % (0-9) Eosinophils (%) (Auto) 1 % (0-3) Basophils (%) (Auto) 0 % (0-3) Neutrophils # (Auto) 6.0 x10^3/uL (1.8-7.7) Lymphocytes # (Auto) 2.0 x10^3/uL (1.0-4.8) Monocytes # (Auto) 0.4 x10^3/uL (0.0-1.1) Eosinophils # (Auto) 0.0 x10^3/uL (0.0-0.7) Basophils # (Auto) 0.0 x10^3/uL (0.0-0.2) Laboratory Tests 09/06/21 11:40 Laboratory Tests 3/19/22 11:40 Assessment & Plan: [id number] @ 39.3 weeks 1. Spontaneous labor 2. GBS negative 3. Cat I FHT DONY MUSTAFA CNM Sep 06, 2021 13:36
--- NOTE | 2021-09-06 13:43 | PDOC4 ---
VAGINAL DELIVERY DATE DATE: 09/06/21 TIME: 13:36 TIME 1200 : 5 Para: 5 EDC: Sep 10, 2021 EGA: 39.3 VAGINAL DELIVERY: VTX VACCUM ASSISTED: No PLACENTA: Spontaneous (Placenta delivered spontaneously via Schultze mechanism with trailing membranes at 1220. ) 8/9 WEIGHT Weight [3095gm] Nuchal Cord: No Amniotic Fluid: Clear EBL 300mL COMPLICATIONS Retained membrane fragments, MEU performed with golf ball sized clot and membrane fragment returned. Fundus firm, scant lochia. Cervix without laceration. Perineum intact. Placenta to pathology. CONDITION Both mother and infant are stable. Routine PP course anticipated. Signs of Intrauterine Infectio: None Shoulder Dystocia: No DONY MUSTAFA CNM Sep 06, 2021 13:43
[2021-09-06] MEDS: IBUPROFEN 400 MG TABLET. PO PRN ×2 (15:38→21:46)
[2021-09-06 16:00] VITALS: BP 123/86
[2021-09-06 17:00] VITALS: BP 111/70
[2021-09-06 21:30] VITALS: BP 118/81
[2021-09-07 02:00] VITALS: BP 130/87
[2021-09-07 08:30] VITALS: BP 118/83
--- NOTE | 2021-09-07 08:55 | PDOC ---
SUPERVISOR SEWING ROOM PROGRESS NOTE Date of Service: DATE: 09/07/21 TIME: 08:53 Subjective: Doing well. Tolerates diet, activity, and voiding without difficulty. Requests early discharge. Otherwise denies complaints. Objective: Objective: FF@U/1, scant lochia, tr edema to bilateral LE. Vital Signs: Vital Signs Date Time Temp Pulse Resp B/P (MAP) Pulse Ox O2 Delivery O2 Flow Rate FiO2 09/06/21 11:40 99.2 105 20 144/94 (111) 98 99.2 09/06/21 21:30 Room Air Vital Signs Date Time Temp Pulse Resp B/P (MAP) Pulse Ox O2 Delivery O2 Flow Rate FiO2 09/07/21 02:00 98.4 67 16 130/87 (101) 98 Room Air 98.4 Labs: Laboratory Tests Test 09/06/21 11:11 09/06/21 11:40 09/06/21 13:45 Urine Collection Type Unknown Urine Color Yellow Urine Clarity Clear Urine pH 7.5 (<5.0-8.0) Urine Specific [place] 1.015 (1.000-1.030) Urine Protein 30 mg/dL (NEG-TRACE) Urine Glucose (UA) Negative mg/dL (NEG) Urine Ketones (Stick) Trace mg/dL (NEG) Urine Blood Negative (NEG) Urine Nitrite Negative (NEG) Urine Bilirubin Negative (NEG) Urine Urobilinogen Dipstick 0.2 mg/dL (0.2 mg/dL) Urine Leukocyte Esterase Negative (NEG) Urine RBC 0 /HPF (0-2) Urine WBC 1-4 /HPF (0-4) Urine Squamous Epithelial Cells Many /LPF Urine Bacteria Few /HPF (0-FEW) White Blood Count 8.5 x10^3/uL (4.0-11.0) Red Blood Count 4.45 x10^6/uL (3.50-5.40) Hemoglobin 12.8 g/dL (12.0-15.5) Hematocrit 39.7 % (36.0-47.0) Mean Corpuscular Volume 89 fL (79-100) Mean Corpuscular Hemoglobin 29 pg (25-35) Mean Corpuscular Hemoglobin Concent 32 g/dL (31-37) Red Cell Distribution Width 16.1 % (11.5-14.5) H Platelet Count 216 x10^3/uL (140-400) Neutrophils (%) (Auto) 71 % (31-73) Lymphocytes (%) (Auto) 23 % (24-48) L Monocytes (%) (Auto) 5 % (0-9) Eosinophils (%) (Auto) 1 % (0-3) Basophils (%) (Auto) 0 % (0-3) Neutrophils # (Auto) 6.0 x10^3/uL (1.8-7.7) Lymphocytes # (Auto) 2.0 x10^3/uL (1.0-4.8) Monocytes # (Auto) 0.4 x10^3/uL (0.0-1.1) Eosinophils # (Auto) 0.0 x10^3/uL (0.0-0.7) Basophils # (Auto) 0.0 x10^3/uL (0.0-0.2) Treponema pallidum Antibody Nonreactive (Nonreactive) SARS-CoV-2 Antigen (Rapid) Negative (NEGATIVE) Laboratory Tests 09/06/21 11:40 Laboratory Tests 09/06/21 11:40 Physical Exam: GENERAL: No apparent distress. Alert and oriented. HEENT: Head normocephalic, atraumatic. NECK: Supple LUNGS: Clear to auscultation. HEART: RRR, S1, S2 present, pulses intact ABDOMEN: Soft, positive bowel sounds. EXTREMITIES: No cyanosis or edema. NEUROLOGIC: Normal speech, normal tone PSYCHIATRIC: Normal affect, normal mood. SKIN: No ulceration. Assessment & Plan: PPD#1 s/p , intact perineum. Reviewed discharge instructions, precautions, and warning signs. f/u 6 weeks at [facility] [place]. DONY MUSTAFA CNM Sep 07, 2021 08:55
[2021-09-07] MEDS ORDERED: IBUP-1060 PO (08:58)
[2021-09-07] MEDS ORDERED: DOCU-109 PO (08:58)
[2021-09-07 13:10] VITALS: BP 114/75
[2021-09-07] MEDS: IBUPROFEN 400 MG TABLET. PO PRN (15:31)
[2021-09-07 16:07] VITALS: BP 128/90
--- NOTE | 2021-09-07 16:20 | NUR ---
Discharge Note: CRISTIAN LE3 SO LND Discharge instructions and discharge home medications reviewed with Patient and a copy given. All questions have been answered and understanding verbalized. The following instructions and handouts were given: Discharge Instructions Post Patients Well Legal Technician - [place] Depression and Baby Blues Care After Vaginal Delivery Patient discharged to home with self-care via ambulation to private vehicle.
--- NOTE | 2021-09-10 14:24 | PATHOLOGY ---
[facility] Accession Number: [id number] . 01 Material submitted: . placenta - PLACENTA AND CORD. Modifiers: CORD . 01 Clinical history: . TERM IUP L5, RETAINED MEMBRANES MANUAL REMOVAL OF PLACENTA FRAGMENTS GA: 39 WEEKS . 02 Diagnosis: 468 gram term placenta of an estimated 39 weeks gestation with attached membranes and umbilical cord: - Placenta weight at approximate 40th percentile for estimated gestational age. - Circumvallate placenta. - Eccentric insertion of umbilical cord. - Intervillous thrombus, measuring 1.5 cm, showing focal villous entrapment and ischemic degeneration. LBQ 09/10/2021 1312 Local . 02 Comment: There is no evidence of an acute chorioamnionitis or villitis. (JPM/db; 09/10/2021) . 02 Electronically signed: . Roc Wells MD, Pathologist NPI- [id number] . 01 Gross description: . Fixative: Formalin Labeled: Placenta Specimen received: Byrd placenta with attached membranes and umbilical cord Trimmed placental weight: 468 g Dimensions: 15.4 x 15.0 x 3.2 cm membranes: [place], translucent membrane rupture: 2.0 cm from placental margin surface: Intact displaying a normal arborizing vasculature pattern, as well as partially detached amnion, and the membranes display a circumvallate insertion Umbilical cord: 42.3 cm in length, 1.0-1.6 cm in diameter Umbilical cord insertion: Slightly eccentric, 3.9 cm from the closest placental margin Number of umbilical vessels: 3 Umbilical cord appearance: Pale kong with moderate helical twisting (approximately 3.5 twists every 5 cm) Maternal surface: Intact and complete Cut surfaces: Red-brown Abnormalities: A single orange-kong lesion measuring 1.5 cm encompassing less than 5% of the total placental volume . Candy Di[place] Hand sections are submitted as follows: A1 surface vessels and proximal umbilical cord A2 membranes and umbilical cord A3 dental sales representative sections of circumvallate membrane insertion A4-A5 dental sales representative sections of maternal surface, with the lesion submitted in cassette A4. (CAA; 09/08/2021) QAC/QAC 09/08/2021 1616 Local . 02 Pathologist provided ICD-10: O43.893, Z37.9, Z3A.39 . 02 CPT . 754003 Specimen Comment: A courtesy copy of this report has been sent to [phone], [phone] Specimen Comment: [id number] Specimen Comment: Report sent to / DR BERKOWITZ Performed at: 01 [facility] [address] [facility] [address] [address], [place] [id number] MD Brock Short MD Phone: [phone] Performed at: 02 [facility] [address] [place], [place] [id number] MD Roc Wells MD Phone: [phone]
== END 2021-09-07 16:20 | disposition home or self-care (01) | DRG 807 ==
LOC: 3 SO LND 10:58 → OBSVTOIN 12:00 → 3 SO LND 15:50
PROVIDERS: ADMIT Obstetrics & Gynecology; ATTEND Obstetrics & Gynecology
PROC: 10E0XZZ Delivery of Products of Conception, External Approach (ICD-10-PCS; principal; 2021-09-06)
DX: O80 Encounter for full-term uncomplicated delivery (principal); Z37.0 Single live birth; Z3A.39 39 weeks gestation of pregnancy; Z20.822 Contact with and (suspected) exposure to COVID-19
CPT/HCPCS: 36415; 81001; 85025; 86592; 86850; 86900; 86901; 87426; G0379; J2590; J3010; J7120; U0003; G0378